=== PATIENT | male | born 1950 | race Caucasian/White ===

== ENCOUNTER → 2017-05-17 | Day surgery (SDC) | payer OTHER ==
[~2017-05-17] VITALS: Ht 180.3 cm; Wt 98.9 kg
[~2017-05-17] MED LIST: ALLOPURINOL; ATENOLOL; [UNRECOGNIZED DRUG - OTHER]
--- NOTE | 2017-05-17 11:03 | Operative Report ---
Operative/Inv Procedure Report Surgery Date: 05/17/17 Name of Procedure: cytoscopy, Right ureteroscopy, laser lithotripsy, basket extraction of stone framents, insertion of R ureteral stenr Pre-Operative Diagnosis: Recurrent UTI and R distal ureteral calculus Post-Operative Diagnosis: same Estimated Blood Loss: scant Surgeon/Director Family: KIMBERLEE TOWNSEND MD Anesthesia: laryngeal mask airway Drains: 26 cm 6 [place] right double-J ureteral stent with a long suture attached Specimens: Stone fragments Microbiology: Urine culture Complications: None Condition: Stable Operative Indication: 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 Since then he has had recurrent UTIs with the same organism. He has a known right distal ureteral calculus. Repeat CT scan showed no evidence of recurrent fistula. The 1 cm right ureteral stone remained in place. There was no other obvious source of his recurrent UTIs other than the right ureteral stone. Therefore he is now scheduled for right ureteroscopy with laser lithotripsy of the stone to hopefully remove the focus of his infection. Operative/Procedure Note Note: The patient was taken to the cystoscopy room and identified. As placed in supine position on the cystoscopy table in a timeout was executed appropriately with the patient awake. Gen. anesthesia was induced via LMA. He was then placed in the dorsal lithotomy position. Bimanual rectal exam revealed an enlarged, nonnodular prostate there was no evidence of prostatic abscess on exam. He was then prepped and draped in usual fashion for cystoscopy. A surgical pause was executed appropriately. Fluoroscopy images taken with a marker on the right side of the abdomen to confirm the correct side of surgery as well as the correct orientation of the fluoroscopy. The 22 [place] cystoscope sheath was placed into the bladder under direct vision using the 30 lens. Anterior urethra was normal. A static urethra showed trilobar hypertrophy with partial bladder outlet obstruction. Upon entering the bladder urine was collected for culture. Cystoscopy was then performed. The bladder was mildly trabeculated but otherwise normal. There was no evidence of recurrent colo- vesical fistula. Ureteral orifices were normal in location and appearance. A sensor guidewire was placed through the cystoscope into the right ureter and advanced up the level of the right kidney. The cystoscope was removed leaving the wire in place. The short rigid ureteroscope was advanced through the urethra into the bladder and into the right distal ureter. The right distal ureteral calculus was visualized. Using the 375 holmium laser fiber the stone was fragmented into multiple small fragments. Using a spiral basket the larger of the fragments were removed and sent for analysis. Following this the remaining stone fragments were very small and felt to be passable. The ureteroscope was removed leaving the wire in place. The cystoscope was back loaded onto the guidewire. An open-ended catheter was placed over the wire and some contrast was injected to outline the right renal collecting system. The guidewire was placed back through the open-ended catheter which was removed. Under visual fluoroscopic control a 26 cm 6 [place] right double-J ureteral stent was placed. The wire was then removed. Fluoroscopy confirmed the proximal and the stent coiled in the renal pelvis and the distal" in the bladder. A long suture was left attached the distal and the stent exiting the urethra. Patient tolerated the procedure well and as completion was taken recovery room in stable condition. Findings: 1 cm right distal ureteral calculus, moderate prostatic hypertrophy, no evidence of recurrent colovesical fistula Discharge Disposition: PACU
--- NOTE | 2017-05-18 13:20 | RADIOLOGY REPORT ---
EXAMINATION: XR ABDOMEN/INTRAOPERATIVE FLUOROSCOPY CLINICAL INDICATION: Right ureteroscopy, lithotripsy, retrograde and stent insertion in OR. COMPARISON: None TECHNIQUE/FINDINGS: Fluoroscopic equipment was dedicated to the operating room for the performance of a right ureteroscopy and lithotripsy and stent placement. 24 spot films were obtained and are archived in PACS. These images demonstrate catheterization insertion into the right ureter with contrast opacification outlining the dilated upper pole right renal calyx. The mid and lower pole calyces are decompressed. Small extrarenal pelvis is noted. No definite hydroureter is demonstrated. Final images demonstrate placement of a right double-J ureteral stent. Proximal pigtail is located in the renal pelvis and the distal pigtail in the bladder, which is only partially opacified. FLUOROSCOPY TIME: 0.6 minutes. IMPRESSION: Administrative dictation for intraoperative fluoroscopy and image archiving from a right ureteroscopy, lithotripsy and stent insertion. Please refer to operative notes.
== END ==
LOC: STS 01:33
DX: N20.1 Calculus of ureter (principal); N40.1 Benign prostatic hyperplasia with lower urinary tract symptoms; N13.8 Other obstructive and reflux uropathy; Z87.440 Personal history of urinary (tract) infections; I10 Essential (primary) hypertension; M10.9 Gout, unspecified
CPT/HCPCS: 74000; 87086; C2617; J0131; J2250